=== PATIENT | male | born 1945 | race Caucasian/White ===

== ENCOUNTER 2017-10-05 08:03 | Day surgery (SDC) | payer MEDICARE ==
[~2017-10-05 08:03] MED LIST: Acetaminophen TAB* 325 MG PO PRN; Buffered Lidocaine 0.9% SYRIN* 5 ML/SYR SYRINGE INTRADERM ONE
[2017-10-05] MEDS ORDERED: Midazolam* 1 MG/ML 2 ML VIAL (2 MG) ONE ×2 (10:13→10:24)
[2017-10-05 12:40] VITALS: BP 102/66
[2017-10-05] MEDS ORDERED: Povidone Iodine 5% OPTH* 30 ML BTL ONE (12:50)
[2017-10-05] MEDS ORDERED: Lidocaine 2% EPI 1:200000 MPF* 20 ML VIAL ONE (12:50)
[2017-10-05] MEDS ORDERED: Lidocaine 1% MPF* 2 ML VIAL ONE (12:50)
[2017-10-05] MEDS ORDERED: acetaZOLAMIDE TAB* 250 MG ONE (12:50)
[2017-10-05] MEDS ORDERED: Ketorolac 0.5% OPHTH (NF) 0.5 % 5 ML BTL ONE (12:50)
[2017-10-05] MEDS ORDERED: Neomycin/Polymy/Dex OPTH.SUSP* MAXITROL 0.1% 5 ML ONE (12:50)
[2017-10-05] MEDS ORDERED: Phenylephrine 2.5% OPTH.SOL* 2 ML BTL ONE (12:50)
[2017-10-05] MEDS ORDERED: Proparacaine 0.5% OPHTH.SOL* 15 ML BTL ONE (12:50)
[2017-10-05] MEDS ORDERED: Cyclopentolate 1% OPTH.SOL* 2 ML BTL ONE (12:50)
--- NOTE | 2017-10-05 13:26 | OP ---
DATE OF OPERATION: 10/05/2017 - [facility] DATE OF : 1945. SURGEON: Gabriel Tai M.D. PREOPERATIVE DIAGNOSIS: Cataract right eye. POSTOPERATIVE DIAGNOSIS: Cataract right eye. OPERATIVE PROCEDURE: Extracapsular cataract extraction with intraocular lens implant right eye. DESCRIPTION OF PROCEDURE: The patient was brought to the operating room after being given 1/2% Alcaine with epinephrine drops in the preoperative area. The eye was prepped and draped in the usual sterile fashion. Sterile drape and eyelid speculum were placed. Again, topical 1/2% Alcaine with epinephrine was given. A paracentesis incision was made at the 9 o'clock position with the No.75 blade. Clear cornea incision 2.2 x 2.2-mm was created at the 12 o'clock position starting at the anterior limbus using the 2.2-mm keratome. The anterior chamber was irrigated with 0.4 mL of 1% non-preservative intracameral lidocaine and filled with DisCoVisc. A capsulorrhexis was completed using the cystotome and the Utrata forceps. Hydrodissection was performed with balanced salt solution. The lens nucleus was removed with the Phacoemulsification handpiece without incident. Cortex was removed with the irrigation-aspiration handpiece. The capsular bag was re-inflated using DisCoVisc and an [id number] implant was inserted with the shooter. The irrigation-aspiration handpiece was used to remove all residual DisCoVisc. The eye was refilled with balanced salt solution and the wound checked and found to be watertight. Topical Maxitrol drops were given. [id number]/[facility] [place] [id number] [address] [facility]ITAL[facility]
== END 2017-10-05 10:56 | disposition home or self-care (01) ==
LOC: OREAST 08:03
PROVIDERS: ATTEND Specialist
DX: H25.811 Combined forms of age-related cataract, right eye (principal); F17.290 Nicotine dependence, other tobacco product, uncomplicated
CPT/HCPCS: A9270-GY; J2250; V2632

== ENCOUNTER 2017-10-12 09:20 | Day surgery (SDC) | payer MEDICARE ==
[2017-10-12] MEDS ORDERED: Midazolam* 1 MG/ML 2 ML VIAL (2 MG) ONE ×2 (11:51→12:05)
[2017-10-12] MEDS ORDERED: Lidocaine 2% EPI 1:200000 MPF* 20 ML VIAL ONE (11:53)
[2017-10-12] MEDS ORDERED: Cyclopentolate 1% OPTH.SOL* 2 ML BTL ONE (11:53)
[2017-10-12] MEDS ORDERED: Lidocaine 1% MPF* 2 ML VIAL ONE (11:53)
[2017-10-12] MEDS ORDERED: Phenylephrine 2.5% OPTH.SOL* 2 ML BTL ONE (11:53)
[2017-10-12] MEDS ORDERED: Neomycin/Polymy/Dex OPTH.SUSP* MAXITROL 0.1% 5 ML ONE (11:53)
[2017-10-12] MEDS ORDERED: acetaZOLAMIDE TAB* 250 MG ONE (11:53)
[2017-10-12] MEDS ORDERED: Ketorolac 0.5% OPHTH (NF) 0.5 % 5 ML BTL ONE (11:54)
[2017-10-12] MEDS ORDERED: Povidone Iodine 5% OPTH* 30 ML BTL ONE (11:54)
[2017-10-12] MEDS ORDERED: Proparacaine 0.5% OPHTH.SOL* 15 ML BTL ONE (11:54)
[2017-10-12 12:38] VITALS: BP 123/86
--- NOTE | 2017-10-12 16:38 | OP ---
DATE OF OPERATION: 10/12/2017 - [facility] DATE OF : 1945. SURGEON: Gabriel Tai M.D. PREOPERATIVE DIAGNOSIS: Cataract left eye. POSTOPERATIVE DIAGNOSIS: Cataract left eye. OPERATIVE PROCEDURE: Extracapsular cataract extraction with intraocular lens implant and CTR left eye. DESCRIPTION OF PROCEDURE: The patient was brought to the operating room after being given 1/2% Alcaine with epinephrine drops in the preoperative area. The eye was prepped and draped in the usual sterile fashion. Sterile drape and eyelid speculum were placed. Again, topical 1/2% Alcaine with epinephrine was given. A paracentesis incision was made at the 3 o'clock position with the No.75 blade. Clear cornea incision 2.2 x 2.2-mm was created at the 6 o'clock position starting at the anterior limbus using the 2.2-mm keratome. The anterior chamber was irrigated with 0.4 mL of 1% non-preservative intracameral lidocaine and filled with DisCoVisc. A capsulorrhexis was completed using the cystotome and the Utrata forceps. Hydrodissection was performed with balanced salt solution. The lens nucleus was removed with the Phacoemulsification handpiece without incident. Cortex was removed with the irrigation-aspiration handpiece. The capsular bag was re-inflated using DisCoVisc and an SN6WF 20.5 implant was inserted with the shooter. The irrigation-aspiration handpiece was used to remove all residual DisCoVisc. The eye was refilled with balanced salt solution and the wound checked and found to be watertight. Topical Maxitrol drops were given. [id number]/[facility] #: [id number] [facility]
== END 2017-10-12 12:29 | disposition home or self-care (01) ==
LOC: OREAST 09:20
PROVIDERS: ATTEND Specialist
DX: H25.812 Combined forms of age-related cataract, left eye (principal); F17.290 Nicotine dependence, other tobacco product, uncomplicated
CPT/HCPCS: A9270-GY; J2250; V2632

== ENCOUNTER 2020-06-04 05:04 | Observation (INO) ==
[2020-06-04] MEDS ORDERED: Dexamethasone IV 4 MG/ML VIAL 1 ml VIAL IV SLOW PU ONE (06:05)
[2020-06-04] MEDS ORDERED: NS 0.9% 1000 ml BAG 1,000 ML IV ONE (06:05)
[2020-06-04 06:50] LABS: ABS Basophils 0.1 10^3/ul (0-0.2); ABS Eosinophils 0.1 10^3/ul (0-0.6); ABS Lymphocytes 2.2 10^3/ul (1.0-4.8); ABS Monocytes 0.6 10^3/ul (0-0.8); ABS Neutrophils 7.3 10^3/ul (1.5-7.7); Eosinophil % 1.4 %; Hematocrit 41 % (42-52); Hemoglobin 14.1 g/dL (14.0-18.0); Lymphocyte % 21.2 %; Mean Corpuscular HGB Conc 34 g/dL (31-36); Mean Corpuscular Hemoglobin 31 pg (27-31); Mean Corpuscular Volume 90 fL (80-94); Mean Platelet Volume 11.7 fL (7.4-10.4); Platelet Count 128 10^3/uL (150-450); Red Blood Count 4.62 10^6 /uL (4.18-5.48); Red Cell Distribution Width 15 % (10-15); White Blood Count 10.3 10^3/uL (3.5-10.8)
[2020-06-04 07:00] LABS: ALT 13 U/L (7-52); AST 16 U/L (13-39); Albumin 4.4 g/dL (3.2-5.2); Albumin/Globulin Ratio 1.6 (1-3); Alkaline Phosphatase 50 U/L (34-104); Anion Gap 7 mmol/L (2-11); Blood Urea Nitrogen 27 mg/dL (6-24); C Reactive Protein < 1.00 mg/L (<8.01); CO2 Carbon Dioxide 27 mmol/L (22-32); Calcium 9.2 mg/dL (8.6-10.3); Chloride 105 mmol/L (101-111); EGFR African American 80.7 (>60); EGFR Non-African American 66.7 (>60); Globulin 2.7 g/dL (2-4); Glucose 113 mg/dL (70-100); Potassium 4.2 mmol/L (3.5-5.0); Sodium 139 mmol/L (135-145); Total Protein 7.1 g/dL (6.4-8.9)
[2020-06-04] MEDS ORDERED: Iohexol 300 (CONTRAST) 10 ML SDV IV ONE (07:14)
[2020-06-04 07:49] LABS: T4, Total 6.75 mcg/dL (6.09-12.23)
[2020-06-04 07:53] LABS: TSH Ultra Thyroid Stim Horm 6.05 mcIU/mL (0.34-5.60)
[2020-06-04] MEDS ORDERED: Clindamycin 600 MG/D5W BAG 600 MG/50 ML BAG IV ONE (08:05)
[2020-06-04] MEDS ORDERED: NS 0.9% 1000 ml BAG 1,000 ML IV SCH (09:45)
[2020-06-04] MEDS ORDERED: Pantoprazole VIAL 40 MG VIAL IV SCH (10:00)
[2020-06-04] MEDS ORDERED: Clindamycin 600 MG/D5W BAG 600 MG/50 ML BAG IV SCH ×2 (10:00→12:00)
[2020-06-04] MEDS: Dexamethasone IV 4 MG/ML VIAL 1 ml VIAL IV SLOW PU SCH ×3 (11:02→23:22)
[2020-06-04] MEDS ORDERED: Piperacillin/Tazobac ADVAN 3.375 GM in NS 0.9% 100 ml BAG 100 ML IVPB ONE (16:45)
[2020-06-04] MEDS ORDERED: Zosyn per Pharmacy NOTE FOLLOW UP SCH (17:00)
[2020-06-04] MEDS: ZOSYN 3.375 GM Q8H per EXTENDED INFUSION IV SCH (23:22)
[2020-06-04] MEDS: Heparin 5000 UNITS/ML 1 mL VIAL SUBCUT SCH (23:23)
[2020-06-04] MEDS: NS 0.9% 500 ml BAG 500 ML IV ONE (23:50)
[2020-06-05] MEDS ORDERED: NS 0.9% 500 ml BAG 500 ML IV ONE (00:43)
[2020-06-05] MEDS: NS 0.9% 500 ml BAG 500 ML IV ONE (00:52)
[2020-06-05] MEDS: Dexamethasone IV 4 MG/ML VIAL 1 ml VIAL IV SLOW PU SCH (03:36)
[2020-06-05] MEDS: Heparin 5000 UNITS/ML 1 mL VIAL SUBCUT SCH (05:35)
[2020-06-05] MEDS: ZOSYN 3.375 GM Q8H per EXTENDED INFUSION IV SCH (05:36)
[2020-06-05 06:44] LABS: ABS Lymphocytes 1.2 10^3/ul (1.0-4.8); ABS Monocytes 0.2 10^3/ul (0-0.8); ABS Neutrophils 8.2 10^3/ul (1.5-7.7); Hematocrit 37 % (42-52); Hemoglobin 12.5 g/dL (14.0-18.0); Lymphocyte % 12.3 %; Mean Corpuscular HGB Conc 34 g/dL (31-36); Mean Corpuscular Hemoglobin 31 pg (27-31); Mean Corpuscular Volume 90 fL (80-94); Platelet Count 108 10^3/uL (150-450); Red Blood Count 4.08 10^6 /uL (4.18-5.48); Red Cell Distribution Width 15 % (10-15); White Blood Count 9.6 10^3/uL (3.5-10.8)
[2020-06-05 07:02] LABS: BUN/Creatinine Ratio 24.1 (8-20); Calcium 8.6 mg/dL (8.6-10.3); EGFR African American 103.5 (>60); EGFR Non-African American 85.5 (>60); Potassium 4.3 mmol/L (3.5-5.0)
[2020-06-05 11:43] VITALS: BP 112/66
== END 2020-06-05 12:30 | disposition home or self-care (01) ==
LOC: ED 05:04 → MED 05:04
PROVIDERS: ADMIT Internal Medicine; ATTEND Internal Medicine